=== PATIENT | female | born 1985 | race Caucasian/White ===

== ENCOUNTER 2019-12-24 08:44 | Emergency (ER) | payer BC, OTHER ==
[~2019-12-24] VITALS: Ht 170.2 cm; Wt 75.7 kg
[2019-12-24] MEDS ORDERED: birth control PO (08:52)
[2019-12-24 09:20] LABS: BASO % 0.7 % (0.0-1.0); EOS # 0.1 10^3/uL (0.0-0.5); EOS % 1.4 % (0.0-3.0); HEMATOCRIT 36.4 % (36.0-47.0); HEMOGLOBIN 12.1 g/dl (12.0-15.5); MEAN CORPUSCULAR HEMOGLOBIN 31.2 pg (27.0-33.0); MEAN CORPUSCULAR HGB CONC 33.2 g/dl (32.0-36.5); MEAN CORPUSCULAR VOLUME 93.8 fl (80.0-96.0); MONO # 0.7 10^3/uL (0.0-0.8); MONO % 11.8 % (0.0-5.0); NEUTROPHILS # 2.8 10^3/uL (1.5-8.5); NEUTROPHILS % 49.9 % (36.0-66.0); PLATELET COUNT, AUTOMATED 279 10^3/uL (150-450); RED BLOOD COUNT 3.88 10^6/uL (4.00-5.40); WHITE BLOOD COUNT 5.6 10^3/uL (4.0-10.0)
[2019-12-24 09:48] LABS: ALT/SGPT 33 U/L (12-78); BILIRUBIN,DIRECT 0.3 MG/DL (0.0-0.2); BILIRUBIN,TOTAL 0.7 MG/DL (0.2-1.0); CK-MB VALUE MASS 1.2 NG/ML (<3.6); CPK CREATINE PHOSPHOKINASE 136 U/L (26-192); LIPASE 172 U/L (73-393); MB/CK RELATIVE INDEX 0.88 (< OR =4); TOTAL PROTEIN 7.1 GM/DL (6.4-8.2); TROPONIN I < 0.02 NG/ML (< 0.10)
[2019-12-24] MEDS ORDERED: KETOROLAC 30 MG/ML 1ML VIAL IV ONE (10:15)
[2019-12-24] MEDS ORDERED: PANTOPRAZOLE 40MG VIAL (C9113 PER 1) IV ONE (10:15)
--- NOTE | 2019-12-24 10:28 | REPVR ---
PROCEDURE INFORMATION: Exam: XR Chest, 2 Views Exam date and time: 12/24/2019 10:06 AM Age: 34 years old Clinical indication: Chest pain; Other: Sternal area; Additional info: Abdominal pain TECHNIQUE: Imaging protocol: XR of the chest Views: 2 views. COMPARISON: No relevant prior studies available. FINDINGS: Lungs: Unremarkable. No consolidation. Pleural space: Unremarkable. No pleural effusion. No pneumothorax. Heart/Mediastinum: Unremarkable. No cardiomegaly. Bones/joints: Unremarkable. IMPRESSION: No evidence for acute pulmonary disease. Electronically signed by: Gerard Landers On 12/24/2019 10:28:05 AM
--- NOTE | 2019-12-24 10:56 | REPVR ---
PROCEDURE INFORMATION: Exam: US Abdomen, Limited; Right Upper Quadrant Exam date and time: 12/24/2019 10:42 AM Age: 34 years old Clinical indication: Abdominal pain; Epigastric; Additional info: Epigastric/ruq pain, positive gotti sign TECHNIQUE: Imaging protocol: US abdomen. Real time ultrasound with image documentation. Limited exam focused on the right upper quadrant. COMPARISON: No relevant prior studies available. FINDINGS: Liver: The liver is homogeneous in echotexture. No demonstrated mass or intrahepatic biliary ductal dilatation. Gallbladder: The gallbladder contains mobile stones. Its wall is not significantly thickened, and there is no significant pericholecystic fluid. Sonographic Gotti sign is reportedly negative. Common bile duct: The common bile duct is normal in size for a patient of this age at 4.4 mm. Pancreas: Visualized portions of the pancreas, not fully including the tail, are without demonstrated abnormality. Right kidney: The right kidney measures 11.9 x 4.2 x 4.4 cm. Normal appearing echotexture. There is no hydronephrosis or demonstrated renal stone, cyst or mass. IMPRESSION: Mobile cholelithiasis without sonographic evidence of cholecystitis. Electronically signed by: Gerard Landers On 12/24/2019 10:55:41 AM
[2019-12-24] MEDS ORDERED: GI COCKTAIL 50ML BTL(HYOSCYAMINE/MAALOX/LIDOCAINE VISCOUS)(1:3:1) PO ONE (11:15)
[2019-12-24 14:37] LABS: CK-MB VALUE MASS < 1.0 NG/ML (<3.6); CPK CREATINE PHOSPHOKINASE 109 U/L (26-192); MB/CK RELATIVE INDEX 0.92 (< OR =4); TROPONIN I < 0.02 NG/ML (< 0.10)
[2019-12-24] MEDS ORDERED: CARA1TAB6 PO (14:48)
[2019-12-24] MEDS ORDERED: PROT1TAB2 PO (14:48)
[2019-12-24 15:03] VITALS: BP 124/81
--- NOTE | 2019-12-25 06:25 | ECGEPIP ---
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
--- NOTE | 2019-12-25 06:40 | ECGEPIP ---
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
[2020-01-14] MEDS ORDERED: ASHL1TAB (10:34)
== END 2019-12-24 15:11 | disposition home or self-care (01) ==
LOC: M ED 08:44
DX: K29.70 Gastritis, unspecified, without bleeding (principal); K80.20 Calculus of gallbladder without cholecystitis without obstruction; R00.1 Bradycardia, unspecified; Z79.3 Long term (current) use of hormonal contraceptives
CPT/HCPCS: 36415; 71046; 76705; 80047; 80076; 81001; 82550; 82553; 83690; 84484; 84702; 85025; 93005; 96374; 96375; 99284; C9113; J1885

== ENCOUNTER → 2020-01-23 | Outpatient (CLI) | payer BC ==
[~2020-01-23] MED LIST: ASHL1TAB; CARA1TAB6 PO; PROT1TAB2 PO; birth control PO
== END ==
LOC: M LABSMTC 08:58
PROVIDERS: ATTEND Anesthesiology
DX: Z01.818 Encounter for other preprocedural examination (principal); Z20.828 Contact with and (suspected) exposure to other viral communicable diseases
CPT/HCPCS: C9803; U0003

== ENCOUNTER 2020-01-28 07:59 | Day surgery (SDC) | payer BC ==
[~2020-01-28] VITALS: Ht 170.2 cm; Wt 70.3 kg
[~2020-01-28 07:59] MED LIST changes: +LR 1,000 ML IV ONE
[2020-01-28] MEDS ORDERED: fentaNYL 250 MCG/5 ML INJECTION (J3010) As Ordered ONE (10:07)
[2020-01-28] MEDS ORDERED: MIDAZOLAM INJ 2MG/2ML VIAL (J2250 PER 1MG) As Ordered ONE (10:07)
[2020-01-28] MEDS ORDERED: dexameTHASONE 4 MG/ML 1ML VIAL (J1100 PER 1MG) As Ordered ONE (10:08)
[2020-01-28] MEDS ORDERED: ROCURONIUM BROMIDE 50 MG/5 ML VIAL As Ordered ONE (10:08)
[2020-01-28] MEDS ORDERED: ONDANSETRON 4MG/2ML VIAL As Ordered ONE (10:08)
[2020-01-28] MEDS ORDERED: propofoL 200 MG/20 ML VIAL As Ordered ONE (10:08)
[2020-01-28] MEDS ORDERED: KETOROLAC 60MG 2ML VIAL As Ordered ONE (10:08)
[2020-01-28] MEDS ORDERED: LIDOCAINE 2% 100MG/5ML SDV (FOR ANES.) As Ordered ONE (10:08)
[2020-01-28] MEDS ORDERED: SCOPOLAMINE 1MG TRANSDERMAL PATCH TOP ONE (10:15)
[2020-01-28] MEDS ORDERED: LIDOCAINE W/EPINEPHRINE 1% 20ML VIAL As Ordered ONE (10:43)
[2020-01-28] MEDS ORDERED: ACETAMINOPHEN 1000MG 100ML IV BTL (OFIRMEV) (J0131 PER 10MG) As Ordered ONE (11:26)
[2020-01-28] MEDS ORDERED: SUGAMMADEX SODIUM 500 MG/5 ML VIAL (BRIDION) As Ordered ONE (11:47)
[2020-01-28] MEDS ORDERED: fentaNYL 100 MCG/2 ML INJECTION (J3010) As Ordered ONE ×2 (12:00→12:31)
[2020-01-28] MEDS: oxyCODONE 5MG TAB PO PRN ×2 (12:41→13:11)
[2020-01-28] MEDS ORDERED: LR 1,000 ML IV SCH (12:45)
[2020-01-28] MEDS ORDERED: fentaNYL 100 MCG/2 ML INJECTION (J3010) IV PRN (12:45)
[2020-01-28] MEDS ORDERED: NORCO, ANEXSIA 5/325MG TABLET (HYDROcodone/ACETAMINOPHEN) PO PRN (12:45)
[2020-01-28] MEDS ORDERED: ONDANSETRON 4MG/2ML VIAL IV PRN (12:45)
[2020-01-28 14:32] VITALS: BP 116/65
--- NOTE | 2020-01-31 13:32 | RO ---
DATE OF OPERATION: 01/28/2020 PREOPERATIVE DIAGNOSIS: Symptomatic cholelithiasis. POSTOPERATIVE DIAGNOSIS: Symptomatic cholelithiasis. PROCEDURE: Robotic cholecystectomy. SURGEON: Santino Galicia DO SAFE AND VAULT INSTALLER: None. ANESTHESIA: General. ESTIMATED BLOOD LOSS: 5 ml. COMPLICATIONS: None. INDICATIONS FOR PROCEDURE: The patient is a 35-year-old female who presents with right upper quadrant pain and found to have symptomatic cholelithiasis. Recommendation was to proceed with robotic cholecystectomy. Risks and benefits of procedure not limited to, but included bleeding, infection, hernia formation, damage to surrounding structures and need for further surgery, discussed in detail with the patient and informed consent was obtained. Procedure was planned. OPERATIVE PROCEDURE: The patient was brought back to operating room 7. After sufficiency sedation, the abdomen was sterilely prepped and draped. Next, time- out was done to confirmed proper patient and proper procedure. Following that, an 8 mm incision was made in the left lower quadrant. A Veress needle inserted and the abdomen was insufflated to 50 mmHg. The Veress needle was then removed and an 8 mm Optiview port was used to gain access to the abdomen. Once the abdomen was entered, three more ports were placed under direct visualization in the right upper quadrant. The robot was then docked to the ports. The fundus of the gallbladder was then elevated up towards the right shoulder. Cystic duct and cystic artery carefully dissected free using combination of blunt and sharp dissection. Gallbladder was then dissected from the liver bed using cautery. It was then placed inside of a 5 mm Endo Catch bag and brought out through the right lateral port site. Once the gallbladder was removed, the abdomen was examined for hemostasis. The ports from the camera removed. The abdomen was desulfated. Skin incisions were closed with 4-0 Vicryl subcuticular sutures. The abdomen was clean and dry. Steri-Strips, 4 x 4 and tape were placed. [facility]
== END 2020-01-28 14:42 | disposition home or self-care (01) ==
LOC: M SDC 07:59
PROVIDERS: ATTEND Surgery
DX: K80.10 Calculus of gallbladder with chronic cholecystitis without obstruction (principal); Z79.899 Other long term (current) drug therapy
CPT/HCPCS: 47562; 81025; 88304; J0131; J1100; J1885; J2250; J2405; J3010; S2900